=== PATIENT | female | born 1965 | race Two or more races ===

== ENCOUNTER → 2021-06-19 | Emergency (ER) | payer OTHER ==
[~2021-06-19] VITALS: Ht 175.3 cm; Wt 102.1 kg
== END | disposition home or self-care (01) ==
LOC: ER 12:07
DX: S93.402A Sprain of unspecified ligament of left ankle, initial encounter (principal); S93.492A Sprain of other ligament of left ankle, initial encounter; W18.39XA Other fall on same level, initial encounter; Y93.89 Activity, other specified; Y92.59 Other trade areas as the place of occurrence of the external cause